=== PATIENT | male | born 1970 | race Caucasian/White ===

== ENCOUNTER 2020-12-05 13:27 | Emergency (ER) | payer OTHER ==
[~2020-12-05] VITALS: Ht 182.9 cm; Wt 81.6 kg
[~2020-12-05 13:27] MED LIST: PRI20 PO; SIMVASTATIN10 M1 PO
[2020-12-05 13:36] VITALS: Ht 182.9 cm; Wt 81.6 kg
[2020-12-05] MEDS ORDERED: ACETAMINOPHEN-H1 TA1 PO (15:15)
[2020-12-05] MEDS ORDERED: NAPROXEN500 MG PO (15:15)
[2020-12-05 15:50] VITALS: BP 134/78
== END 2020-12-05 15:50 | disposition home or self-care (01) ==
LOC: ED 13:27
DX: S83.92XA Sprain of unspecified site of left knee, initial encounter (principal); M25.462 Effusion, left knee; W10.8XXA Fall (on) (from) other stairs and steps, initial encounter; Y93.89 Activity, other specified; Y92.89 Other specified places as the place of occurrence of the external cause; Y99.8 Other external cause status
CPT/HCPCS: J2270; Q0162